=== PATIENT | female | born 1965 ===

== ENCOUNTER 2017-04-12 12:32 | Emergency (ER) | payer OTHER ==
[2017-04-12 12:32] VITALS: BMI 28.3
[2017-04-12 12:49] VITALS: BP 148/71; PULSE 97; RESP 18; TEMP 99.1; O2SAT 100
[2017-04-12] MEDS: Sodium Chloride 0.9% 1,000 ML IV STA (13:20)
--- NOTE | 2017-04-12 14:00 | ED PDOC ---
HPI: Abdomen Time Seen by Provider: 04/12/17 13:14 Chief Complaint (Nursing): Abdominal Pain Chief Complaint (Provider): Abdominal pain History Per: Patient History/Exam Limitations: no limitations Onset/Duration Of Symptoms: Days (x1) Current Symptoms Are (Timing): Still Present Pain Scale Rating Of: 8 Location Of Pain/Discomfort: LLQ Associated Symptoms: Fever, Chills, Nausea, Vomiting, Diarrhea, Other ( Abdominal pain) Additional Complaint(s): Cora Hoffman is a 51 year old female, with a past medical history of anemia and hypertension, who presents to the emergency department complaining of abdominal pain associated with nausea, vomit, diarrhea, subjective fever and chills onset since yesterday. She reports x10 episodes of diarrhea and x2 episodes of vomiting. Patient denies any recent sick contacts. No further medical complaints. PMD: Jeff Mendoza Past Medical History Reviewed: Historical Data, Nursing Documentation, Vital Signs Vital Signs: Last Vital Signs Temp 99.1 F 04/12/17 12:46 Pulse 97 H 04/12/17 12:46 Resp 18 04/12/17 12:46 BP 148/71 04/12/17 12:46 Pulse Ox 100 04/12/17 18:29 - Medical History PMH: Anemia, HTN Denies: Chronic Kidney Disease - Family History Family History: States: Unknown Family Hx - Social History Current smoker - smoking cessation education provided: No Alcohol: None Drugs: Denies - Home Medications Home Medications: Ambulatory Orders Medication Instructions Recorded amLODIPine [Norvasc] 2.5 mg PO DAILY 07/28/15 Ciprofloxacin [Cipro] 500 mg PO BID #14 tab 04/12/17 Dicyclomine [Bentyl] 20 mg PO QID PRN #10 tab 04/12/17 Multivitamin/Iron/Folic Acid 1 tab PO DAILY 04/12/17 [Centrum Complete Multivit Tab] Vitamin B Complex [Super B-50 1 cap PO DAILY 04/12/17 Complex] metroNIDAZOLE [Flagyl] 500 mg PO TID #21 tab 04/12/17 - Allergies Allergies/Adverse Reactions: Allergies Allergy/AdvReac Type Severity Reaction Status Date / Time No Known Allergies Allergy Unverified 04/26/13 08:25 Review of Systems ROS Statement: Except As Marked, All Systems Reviewed And Found Negative Constitutional: Positive for: Fever (subjective), Chills Gastrointestinal: Positive for: Nausea, Vomiting (x2), Abdominal Pain, Diarrhea (x10) Physical Exam - Reviewed Nursing Documentation Reviewed: Yes Vital Signs Reviewed: Yes - Physical Exam Appears: Positive for: Well, Non-toxic, No Acute Distress Head Exam: Positive for: ATRAUMATIC, NORMAL INSPECTION, NORMOCEPHALIC Skin: Positive for: Normal Color, Warm, Dry Eye Exam: Positive for: Normal appearance, EOMI, PERRL Neck: Positive for: Normal, Painless ROM, Supple Cardiovascular/Chest: Positive for: Regular Rate, Rhythm. Negative for: Murmur Respiratory: Positive for: Normal Breath Sounds. Negative for: Respiratory Distress Gastrointestinal/Abdominal: Positive for: Tenderness (generalized to LLQ) Back: Positive for: Normal Inspection. Negative for: L CVA Tenderness, R CVA Tenderness Extremity: Positive for: Normal ROM. Negative for: Deformity, Swelling Neurologic/Psych: Positive for: Alert, Oriented - Laboratory Results Result Diagrams: 04/12/17 14:00 04/12/17 14:00 - ECG O2 Sat by Pulse Oximetry: 100 (RA) Pulse Ox Interpretation: Normal - Physician Consult Information Physician Contacted: Jeff Mendoza Outcome Of Conversation: Agrees with plan to discharge home, follow-up in office. Medical Decision Making Medical Decision Making: Initial Impression: Colitis, gastroenteritis Initial Plan: --Abd & Pelvis IV Contrast only [CT] --EKG --Comp Metabolic Panel --Lipase --Urine dipstick --Urine --CBC w/ differential --Bentyl 20 mg PO --NS IV 1,000 ml @ 1,000 mls/hr --Zofran Inj 4 mg --reevaluation Accession No. : [id number] Patient Name / ID : JUDIT MCCOY / [id number] Exam Date : 04/12/2017 15:28:31 ( Approved ) Study Comment : Sex / Age : F / 51Y Creator : Kami Pablo MD Dictator : Kami Pablo MD Dough Scaler And Mixer : Fondant Puff Maker : Kami Pablo MD Approver2 : Report Date : 04/12/2017 16:21:03 My Comment : PROCEDURE: CT Abdomen and Pelvis with contrast HISTORY: Gen abd pain, >LLQ, vomiting, diarrhea COMPARISON: Comparison is made to the previous study dated 11/16/2014 TECHNIQUE: Contrast dose: 90 mL of Omnipaque 300. Axial and reformatted coronal and sagittal CT images of the abdomen and pelvis were obtained after IV contrast administration. Radiation dose: Total exam DLP = 830.27 mGy-cm. This CT exam was performed using one or more of the following dose reduction techniques: Automated exposure control, adjustment of the mA and/or kV according to patient size, and/or use of iterative reconstruction technique. FINDINGS: LOWER THORAX: Unremarkable. LIVER: Unremarkable. No gross lesion or ductal dilatation. GALLBLADDER AND BILE DUCTS: Status post cholecystectomy. The common bile duct is mildly dilated likely due to prior cholecystectomy. PANCREAS: Unremarkable. No gross lesion or ductal dilatation. SPLEEN: The spleen is prominent in size. ADRENALS: Unremarkable. No mass. KIDNEYS AND URETERS: Unremarkable. No hydronephrosis. No solid mass. VASCULATURE: Unremarkable. No aortic aneurysm. BOWEL: There are mildly 2 moderately dilated small bowel loops demonstrate mild enhancing thick wall noted at the mid and lower left abdomen. The large bowel is partially collapsed. Findings could represent enteritis. The possibility of low-grade bowel obstruction is not totally excluded. No evidence of pneumatosis. APPENDIX: No evidence of appendicitis. PERITONEUM: Unremarkable. No free fluid. No free air. LYMPH NODES: Unremarkable. No enlarged lymph nodes. BLADDER: The urinary bladder is not distended therefore cannot be evaluated. REPRODUCTIVE: The uterus is heterogeneous mildly enlarged likely contains multiple fibroids. BONES: No acute fracture. OTHER FINDINGS: None. IMPRESSION: Mildly to moderately dilated small bowel loops noted in the left abdomen demonstrate mild wall thickening. The differential diagnosis includes enteritis or less likely low grade bowel obstruction. The large bowel is partially collapsed. No evidence of free air or free fluid in the abdomen and pelvis. Status post cholecystectomy since the previous study. Otherwise no significant interval change. Scribe Attestation: Documented by Maurice Rene, acting as a scribe for Makenzie Gregory MD Provider Scribe Attestation: All medical record entries made by the Scribe were at my direction and personally dictated by me. I have reviewed the chart and agree that the record accurately reflects my personal performance of the history, physical exam, medical decision making, and the department course for this patient. I have also personally directed, reviewed, and agree with the discharge instructions and disposition. Disposition - Clinical Impression Clinical Impression: Enteritis - Patient ED Disposition Is Patient to be Admitted: No - Disposition Referrals: Jeff Mendoza MD [Family Provider] - Disposition: Routine/Home Disposition Time: 18:28 Condition: STABLE Prescriptions: Ciprofloxacin [Cipro] 500 mg PO BID #14 tab Dicyclomine [Bentyl] 20 mg PO QID PRN #10 tab PRN Reason: Pain, Moderate (4-7) metroNIDAZOLE [Flagyl] 500 mg PO TID #21 tab Instructions: Enteritis (ED) Forms: [employer] (Romanian) Print Language: TOGOLESE
[2017-04-12 14:18] LABS: BASO % 0.2 % (0.0-2.0); EOS % 0.1 % (0.0-4.0); HEMATOCRIT 47.1 % (34.0-47.0); LYMPH # 0.4 K/uL (1.0-4.3); LYMPH % 3.3 % (20.0-40.0); MEAN CELL VOLUME 87.6 fl (81.0-99.0); MEAN CORPUSCULAR HEMOGLOBIN 28.2 pg (27.0-31.0); MEAN CORPUSCULAR HGB CONC 32.2 g/dL (33.0-37.0); MEAN PLATELET VOLUME 9.7 fl (7.2-11.7); MONO # 0.5 K/uL (0.0-0.8); MONO % 4.2 % (0.0-10.0); NEUT # 10.9 K/uL (1.8-7.0); NEUT % 92.2 % (50.0-75.0); NRBC % 0.1 % (0.0-0.0); PLATELET COUNT 220 K/uL (130-400); RED CELL DISTRIBUTION WIDTH 14.5 % (11.5-14.5); WHITE BLOOD COUNT 11.8 K/uL (4.8-10.8)
[2017-04-12 14:19] LABS: RBC URINE 5 /hpf (0-3); URINE BACTERIA RARE (<OCC); URINE BILIRUBIN NEGATIVE (NEGATIVE); URINE BLOOD MODERATE (NEGATIVE); URINE COLOR AMBER (YELLOW); URINE GLUCOSE (UA) NEG (Normal); URINE KETONE NEGATIVE (NEGATIVE); URINE LEUKOCYTE ESTERASE MOD Leu/uL (Negative); URINE PROTEIN 30 mg/dL (NEGATIVE); URINE UROBILINOGEN 0.2-1.0 mg/dL (0.2-1.0); WBC URINE 10 /hpf (0-5)
[2017-04-12 14:31] LABS: ALB/GLOB RATIO 1.4 (1.0-2.1); ALKALINE PHOSPHATASE 87 U/L (38-126); ALT/SGPT 39 U/L (9-52); AST/SGOT 24 U/L (14-36); BILIRUBIN,TOTAL 0.7 mg/dl (0.2-1.3); BLOOD UREA NITROGEN 20 mg/dl (7-17); CALCIUM 8.6 mg/dL (8.4-10.2); CARBON DIOXIDE 24 mmol/L (22-30); CHLORIDE 106 mmol/L (98-107); GFR AFRICAN-AMERICAN > 60; GLUCOSE,RANDOM 101 mg/dL (65-105); LIPASE 60 U/L (23-300); POTASSIUM 3.9 MMOL/L (3.6-5.0); SODIUM 139 mmol/l (132-148); TOTAL PROTEIN 7.7 G/DL (6.3-8.2)
[2017-04-12 14:52] LABS: NEUTROPHIL 95 % (42-75); TOTAL CELLS COUNTED 100
[2017-04-12] MEDS ORDERED: Sodium Chloride 0.9% 50 ML IV ONE (15:34)
[2017-04-12] MEDS ORDERED: Iohexol 300 100 ML IJ ONE (15:34)
--- NOTE | 2017-04-12 16:22 | CT ---
PROCEDURE: CT Abdomen and Pelvis with contrast HISTORY: Gen abd pain, >LLQ, vomiting, diarrhea COMPARISON: Comparison is made to the previous study dated 11/16/2014 TECHNIQUE: Contrast dose: 90 mL of Omnipaque 300. Axial and reformatted coronal and sagittal CT images of the abdomen and pelvis were obtained after IV contrast administration. Radiation dose: Total exam DLP = 830.27 mGy-cm. This CT exam was performed using one or more of the following dose reduction techniques: Automated exposure control, adjustment of the mA and/or kV according to patient size, and/or use of iterative reconstruction technique. FINDINGS: LOWER THORAX: Unremarkable. LIVER: Unremarkable. No gross lesion or ductal dilatation. GALLBLADDER AND BILE DUCTS: Status post cholecystectomy. The common bile duct is mildly dilated likely due to prior cholecystectomy. PANCREAS: Unremarkable. No gross lesion or ductal dilatation. SPLEEN: The spleen is prominent in size. ADRENALS: Unremarkable. No mass. KIDNEYS AND URETERS: Unremarkable. No hydronephrosis. No solid mass. VASCULATURE: Unremarkable. No aortic aneurysm. BOWEL: There are mildly 2 moderately dilated small bowel loops demonstrate mild enhancing thick wall noted at the mid and lower left abdomen. The large bowel is partially collapsed. Findings could represent enteritis. The possibility of low-grade bowel obstruction is not totally excluded. No evidence of pneumatosis. APPENDIX: No evidence of appendicitis. PERITONEUM: Unremarkable. No free fluid. No free air. LYMPH NODES: Unremarkable. No enlarged lymph nodes. BLADDER: The urinary bladder is not distended therefore cannot be evaluated. REPRODUCTIVE: The uterus is heterogeneous mildly enlarged likely contains multiple fibroids. BONES: No acute fracture. OTHER FINDINGS: None. IMPRESSION: Mildly to moderately dilated small bowel loops noted in the left abdomen demonstrate mild wall thickening. The differential diagnosis includes enteritis or less likely low grade bowel obstruction. The large bowel is partially collapsed. No evidence of free air or free fluid in the abdomen and pelvis. Status post cholecystectomy since the previous study. Otherwise no significant interval change.
[2017-04-12] MEDS ORDERED: metroNIDAZOLE 500mg/100ml NS 100 ML IVPB ONE (17:13)
[2017-04-12] MEDS ORDERED: Ciprofloxacin 400mg/200ml D5W 400 MG/200 ML BAG IVPB ONE (17:13)
[2017-04-12] MEDS: metroNIDAZOLE 500mg/100ml NS 100 ML IV STA (17:14)
[2017-04-12] MEDS: Ciprofloxacin 400mg/200ml D5W 400 MG/200 ML BAG IV STA (18:20)
--- NOTE | 2017-04-13 07:47 | CARD ---
APPROVED REPORT EKG Measurement Heart [id number] <Conclusion> Normal sinus rhythm Normal ECG
== END 2017-04-12 19:42 | disposition home or self-care (01) ==
LOC: H.ER 12:32
DX: K52.9 Noninfective gastroenteritis and colitis, unspecified (principal); I10 Essential (primary) hypertension; Z90.49 Acquired absence of other specified parts of digestive tract; R50.9 Fever, unspecified; D64.9 Anemia, unspecified
CPT/HCPCS: 74177; 80053; 81003; 81025; 83690; 85025; 93005; 96374; 96375; 99284; J0744; J2405; J7040; Q9967

== ENCOUNTER 2017-06-29 18:08 | Emergency (ER) | payer OTHER ==
[2017-06-29 18:08] VITALS: BMI 28.3
[2017-06-29 18:29] VITALS: O2SAT 100
[2017-06-29 19:52] LABS: BASO # 0.1 K/uL (0.0-0.2); BASO % 0.8 % (0.0-2.0); EOS % 0.4 % (0.0-4.0); HEMOGLOBIN 14.2 g/dL (12.0-16.0); LYMPH # 1.4 K/uL (1.0-4.3); LYMPH % 18.9 % (20.0-40.0); MEAN CELL VOLUME 86.7 fl (81.0-99.0); MEAN CORPUSCULAR HEMOGLOBIN 28.5 pg (27.0-31.0); MEAN CORPUSCULAR HGB CONC 32.9 g/dL (33.0-37.0); MEAN PLATELET VOLUME 9.4 fl (7.2-11.7); MONO # 0.6 K/uL (0.0-0.8); MONO % 8.5 % (0.0-10.0); NEUT # 5.4 K/uL (1.8-7.0); NEUT % 71.4 % (50.0-75.0); NRBC % 0.2 % (0.0-0.0); RBC 4.99 Mil/uL (3.80-5.20); RED CELL DISTRIBUTION WIDTH 14.7 % (11.5-14.5); WHITE BLOOD COUNT 7.5 K/uL (4.8-10.8)
[2017-06-29 20:04] LABS: BLOOD UREA NITROGEN 10 mg/dl (7-17); CALCIUM 9.2 mg/dL (8.4-10.2); GFR AFRICAN-AMERICAN > 60; GFR NON-AFRICAN AMERICAN > 60
[2017-06-29 20:21] LABS: SPERM URINE FEW /hpf; SQUAMOUS EPITHIAL 7 /hpf (0-5); URINE BACTERIA OCC (<OCC); URINE BILIRUBIN NEGATIVE (NEGATIVE); URINE BLOOD NEGATIVE (NEGATIVE); URINE CLARITY CLOUDY (Clear); URINE COLOR YELLOW (YELLOW); URINE GLUCOSE (UA) NEG (Normal); URINE LEUKOCYTE ESTERASE TRACE Leu/uL (Negative); URINE NITRATE NEGATIVE (NEGATIVE); URINE PROTEIN NEGATIVE (NEGATIVE); URINE UROBILINOGEN 0.2-1.0 mg/dL (0.2-1.0)
--- NOTE | 2017-06-29 20:36 | ED PDOC ---
HPI: Headache Time Seen by Provider: 06/29/17 19:15 Chief Complaint (Nursing): Chest Pain Chief Complaint (Provider): Headache History Per: Patient History/Exam Limitations: no limitations Onset/Duration Of Symptoms: Days (x2), Worse Since Current Symptoms Are (Timing): Still Present Associated Symptoms: Nausea, Vomiting, Other (diarrhea). denies: Blurred Vision Additional Complaint(s): Cora Stanley, a 51 year old patient with a history of hypertension and headache presents to the Emergency Department complaining of headache onset two days ago. She has had one of episode nausea, vomiting, and diarrhea (non-bloody and non-bilious). Reports she took liquid gel Advil. She says it is not maximal but it has gotten worse. Patient also has non-radiating chest pain. Denies shortness of breath, vision change, weakness, and numbness. PMD:Jeff Mendoza Past Medical History Reviewed: Historical Data, Nursing Documentation, Vital Signs Vital Signs: Last Vital Signs Temp 98.4 F 06/29/17 18:27 Pulse 82 06/29/17 19:24 Resp 18 06/29/17 19:24 BP 173/93 H 06/29/17 19:24 Pulse Ox 100 06/29/17 19:24 - Medical History PMH: Anemia, HTN Denies: Chronic Kidney Disease - Family History Family History: States: Unknown Family Hx - Social History Current smoker - smoking cessation education provided: No - Home Medications Home Medications: Ambulatory Orders Medication Instructions Recorded amLODIPine [Norvasc] 2.5 mg PO DAILY 07/28/15 Ciprofloxacin [Cipro] 500 mg PO BID #14 tab 04/12/17 Dicyclomine [Bentyl] 20 mg PO QID PRN #10 tab 04/12/17 Multivitamin/Iron/Folic Acid 1 tab PO DAILY 04/12/17 [Centrum Complete Multivit Tab] Vitamin B Complex [Super B-50 1 cap PO DAILY 04/12/17 Complex] metroNIDAZOLE [Flagyl] 500 mg PO TID #21 tab 04/12/17 Ketorolac Tromethamine [Toradol] 10 mg PO BID #30 tab 06/29/17 - Allergies Allergies/Adverse Reactions: Allergies Allergy/AdvReac Type Severity Reaction Status Date / Time No Known Allergies Allergy Unverified 06/29/17 18:29 Review of Systems ROS Statement: Except As Marked, All Systems Reviewed And Found Negative Eyes: Negative for: Vision Change Cardiovascular: Positive for: Chest Pain (non-radiating ) Respiratory: Negative for: Shortness of Breath Gastrointestinal: Positive for: Nausea, Vomiting (one episode), Diarrhea (non- bloody and non-bilious ) Neurological: Negative for: Weakness, Numbness Physical Exam - Reviewed Nursing Documentation Reviewed: Yes Vital Signs Reviewed: Yes - Physical Exam Appears: Positive for: Well, Non-toxic, No Acute Distress Head Exam: Positive for: ATRAUMATIC, NORMAL INSPECTION, NORMOCEPHALIC Skin: Positive for: Normal Color, Warm, Dry Eye Exam: Positive for: Normal appearance, EOMI, PERRL ENT: Positive for: Normal ENT Inspection Neck: Positive for: Normal, Painless ROM, Supple Cardiovascular/Chest: Positive for: Regular Rate, Rhythm. Negative for: Murmur Respiratory: Positive for: Normal Breath Sounds. Negative for: Wheezing, Respiratory Distress Gastrointestinal/Abdominal: Positive for: Normal Exam, Soft. Negative for: Tenderness Back: Positive for: Normal Inspection. Negative for: L CVA Tenderness, R CVA Tenderness Extremity: Positive for: Normal ROM. Negative for: Pedal Edema, Deformity Neurologic/Psych: Positive for: Alert, Oriented (x3), Gait. Negative for: Motor /Sensory Deficits, Mood/Affect, Aphasia, Facial Droop - Laboratory Results Result Diagrams: 06/29/17 19:49 06/29/17 19:49 - ECG O2 Sat by Pulse Oximetry: 100 (RA) Pulse Ox Interpretation: Normal Medical Decision Making Medical Decision Making: Time: 19:32 Initial Impression: Migraine Headache and Gastroenteritis Initial Plan: --EKG --BMP --Troponin I --CBC --Chest X-ray --Metoclopramide 10mg --Toradol 30mg --Urinalysis --Reevaluation 930PM Patient reports complete resolution of symptoms. Patient understands the importance of followup with PMD. Return precautions discussed. Documented by Sachi Davila acting as a scribe for Matthew Epperson MD. All medical record entries made by the Scribe were at my direction and personally dictated by me. I have reviewed the chart and agree that the record accurately reflects my personal performance of the history, physical exam, medical decision making, and the department course for this patient. I have also personally directed, reviewed, and agree with the discharge instructions and disposition. Disposition - Clinical Impression Clinical Impression: Headache - Disposition Referrals: Jeff Mendoza MD [Family Provider] - Disposition Time: 21:30 Condition: IMPROVED Prescriptions: Ketorolac Tromethamine [Toradol] 10 mg PO BID #30 tab Instructions: Migraine Headache (ED) Forms: [employer] (Kinyarwanda) Print Language: CZECH
[2017-06-29 22:14] VITALS: BP 144/84; PULSE 81; RESP 17; TEMP 98.1
--- NOTE | 2017-06-30 11:20 | RAD ---
HISTORY: Chest pain. COMPARISON: 12/25/2012. FINDINGS: LUNGS: No active pulmonary disease. PLEURA: No significant pleural effusion identified, no pneumothorax apparent. CARDIOVASCULAR: No radiographic findings to suggest acute or significant cardiovascular disease. OSSEOUS STRUCTURES: No significant abnormalities. VISUALIZED UPPER ABDOMEN: Normal. OTHER FINDINGS: None. IMPRESSION: No active disease. No significant interval change compared to the prior examination(s). Concordant results with the preliminary interpretation rendered by the emergency department physician procedure.
--- NOTE | 2017-06-30 11:24 | CARD ---
APPROVED REPORT EKG Measurement Heart [id number] <Conclusion> Normal sinus rhythm Normal ECG
== END 2017-06-29 22:08 | disposition home or self-care (01) ==
LOC: H.ER 18:08
DX: G43.909 Migraine, unspecified, not intractable, without status migrainosus (principal); R07.89 Other chest pain; I10 Essential (primary) hypertension; K52.9 Noninfective gastroenteritis and colitis, unspecified
CPT/HCPCS: 71045; 80048; 81003; 81025; 84484; 85025; 93005; 96374; 96375; 99285; J1885; J2765

== ENCOUNTER 2017-07-09 21:58 | Emergency (ER) | payer OTHER ==
[2017-07-09 21:58] VITALS: BMI 28.3
[2017-07-09 22:16] VITALS: BP 150/64; RESP 18; TEMP 98.4; O2SAT 98
--- NOTE | 2017-07-09 23:08 | ED PDOC ---
HPI: General Adult Time Seen by Provider: 07/09/17 22:17 Chief Complaint (Nursing): Chest Pain Chief Complaint (Provider): Palipitations for 1 week History Per: Patient History/Exam Limitations: no limitations Onset/Duration Of Symptoms: Days (7), Intermittent Episodes Current Symptoms Are (Timing): Still Present Severity: Mild Recently: Seen In ED Additional History Per: Patient Additional Complaint(s): This is a 51 y/o female with history of HTN, who presents tonight complaining of intermittent episodes of palpitations for the last week. She reports that she was seen in this ED one week ago at the onset of the palpitations, work up was negative, and she was discharged home. Patient did follow up with her PMD Dr. Mendoza, who increased her Norvasc as her blood pressure was elevated as well. However, tonight she again experienced palpitations, as well as nausea and vomiting x2, and shortness of breath. No chest pain, lightheadedness, or other complaint. Patient reports that she does have some stress at home that has caused her to feel anxious, she has had trouble sleeping, and has had a 10 pound weight loss. Past Medical History Vital Signs: Last Vital Signs Temp 98.4 F 07/09/17 22:10 Pulse 79 07/09/17 22:50 Resp 18 07/09/17 22:10 BP 150/64 07/09/17 22:10 Pulse Ox 98 07/10/17 01:05 - Medical History PMH: Anemia, HTN Denies: Chronic Kidney Disease - Surgical History Surgical History: - Family History Family History: States: Unknown Family Hx - Home Medications Home Medications: Ambulatory Orders Medication Instructions Recorded amLODIPine [Norvasc] 2.5 mg PO DAILY 07/28/15 Ciprofloxacin [Cipro] 500 mg PO BID #14 tab 04/12/17 Dicyclomine [Bentyl] 20 mg PO QID PRN #10 tab 04/12/17 Multivitamin/Iron/Folic Acid 1 tab PO DAILY 04/12/17 [Centrum Complete Multivit Tab] Vitamin B Complex [Super B-50 1 cap PO DAILY 04/12/17 Complex] metroNIDAZOLE [Flagyl] 500 mg PO TID #21 tab 04/12/17 Ketorolac Tromethamine [Toradol] 10 mg PO BID #30 tab 06/29/17 - Allergies Allergies/Adverse Reactions: Allergies Allergy/AdvReac Type Severity Reaction Status Date / Time No Known Allergies Allergy Verified 07/09/17 22:11 Review of Systems ROS Statement: Except As Marked, All Systems Reviewed And Found Negative Cardiovascular: Positive for: Palpitations Respiratory: Positive for: Shortness of Breath Gastrointestinal: Positive for: Nausea, Vomiting Psych: Positive for: Anxiety Physical Exam - Reviewed Nursing Documentation Reviewed: Yes Vital Signs Reviewed: Yes - Physical Exam Appears: Positive for: Well, Non-toxic, No Acute Distress Head Exam: Positive for: ATRAUMATIC, NORMAL INSPECTION, NORMOCEPHALIC Skin: Positive for: Normal Color, Warm, DRY Eye Exam: Positive for: EOMI, Normal appearance, PERRL ENT: Positive for: Normal ENT Inspection Neck: Positive for: Normal, Painless ROM Cardiovascular/Chest: Positive for: Regular Rate, Rhythm Respiratory: Positive for: CNT, Normal Breath Sounds Gastrointestinal/Abdominal: Positive for: Normal Exam, Bowel Sounds, Soft Back: Positive for: Normal Inspection Extremity: Positive for: Normal ROM Neurologic/Psych: Positive for: Alert, Oriented - Laboratory Results Result Diagrams: 07/09/17 23:31 07/09/17 23:31 - ECG ECG: Positive for: Interpreted By Me, Viewed By Me ECG Rhythm: Positive for: Normal QRS, Normal ST Segment, Sinus Rhythm Interpretation Of EC:06: Normal Sinus Rhythm, rate 79. No ST changes. O2 Sat by Pulse Oximetry: 98 (RA) Pulse Ox Interpretation: Normal Medical Decision Making Medical Decision Making: Impression: Palpitations Plan: - Labs - EKG - Crisis consult Labs reviewed and revealed no clinically significant findings. Re-evaluation. Patient feels better. Discussed results and plan with patient who expresses understanding. Counseling was provided regarding the diagnosis and prognosis. All questions Answered and there is agreement with the plan to discharge home with instructions. Patient stable for discharge. Return if symptoms persist or worsen. Scribe Attestation Documented by Aditi Birmingham acting as a scribe for Fan Wyatt MD. Provider Attestation All medical record entries made by the Scribe were at my direction and personally dictated by me. I have reviewed the chart and agree that the record accurately reflects my personal performance of the history, physical exam, medical decision making, and the department course for this patient. I have also personally directed, reviewed, and agree with the discharge instructions and disposition. Disposition - Clinical Impression Clinical Impression: Palpitations, Anxiety, Adjustment disorder - Patient ED Disposition Is Patient to be Admitted: No Doctor Will See Patient In The: Office Counseled Patient/Family Regarding: Diagnosis, Need For Followup - Disposition Disposition: Against Medical Advice (01:03) Disposition Time: 01:03 Condition: STABLE Instructions: Adjustment Disorder, Anxiety, Adult (DC) Forms: [employer] (Faroese) Print Language: SLOVAK
[2017-07-09 23:10] VITALS: PULSE 79
[2017-07-09 23:37] LABS: BASO # 0.1 K/uL (0.0-0.2); EOS % 0.6 % (0.0-4.0); HEMOGLOBIN 13.8 g/dL (12.0-16.0); LYMPH # 1.6 K/uL (1.0-4.3); LYMPH % 26.4 % (20.0-40.0); MEAN CELL VOLUME 87.2 fl (81.0-99.0); MEAN CORPUSCULAR HEMOGLOBIN 28.6 pg (27.0-31.0); MEAN CORPUSCULAR HGB CONC 32.8 g/dL (33.0-37.0); MEAN PLATELET VOLUME 10.1 fl (7.2-11.7); MONO # 0.6 K/uL (0.0-0.8); MONO % 10.1 % (0.0-10.0); NEUT # 3.7 K/uL (1.8-7.0); NEUT % 61.9 % (50.0-75.0); NRBC % 0.1 % (0.0-0.0); RBC 4.81 Mil/uL (3.80-5.20); RED CELL DISTRIBUTION WIDTH 14.6 % (11.5-14.5); WHITE BLOOD COUNT 5.9 K/uL (4.8-10.8)
[2017-07-09 23:51] LABS: BLOOD UREA NITROGEN 12 mg/dl (7-17); CALCIUM 9.2 mg/dL (8.4-10.2); GFR AFRICAN-AMERICAN > 60; GFR NON-AFRICAN AMERICAN > 60
[2017-07-10 00:02] LABS: BARBITURATES, UR NEGATIVE (NEGATIVE); BENZODIAZEPINES, UR NEGATIVE (NEGATIVE); OPIATES, UR NEGATIVE (NEGATIVE); PHENCYCLIDINE, UR NEGATIVE (NEGATIVE)
--- NOTE | 2017-07-11 09:09 | CARD ---
APPROVED REPORT EKG Measurement Heart [id number] [id number] <Conclusion> Normal sinus rhythm Normal ECG
== END 2017-07-10 01:14 | disposition home or self-care (01) ==
LOC: H.ER 21:58
DX: R00.2 Palpitations (principal); F41.9 Anxiety disorder, unspecified; F43.20 Adjustment disorder, unspecified; I10 Essential (primary) hypertension

== ENCOUNTER 2017-12-20 08:17 | Emergency (ER) | payer OTHER ==
[2017-12-20 08:20] VITALS: BMI 26.5
--- NOTE | 2017-12-20 09:04 | ED PDOC ---
HPI: Female Pain Time Seen by Provider: 12/20/17 08:55 Chief Complaint (Provider): urine burning History Per: Patient History/Exam Limitations: no limitations Onset/Duration Of Symptoms: Days (today) Current Symptoms Are (Timing): Still Present Additional Complaint(s): Pt. with dysuria, hematuria, frequency of urination, urgency of urination. No abd pain, back pain, vaginal bleeding, nausea, vomit, diarrhea. Past Medical History Reviewed: Nursing Documentation, Vital Signs Vital Signs: Last Vital Signs Temp 98.8 F 12/20/17 08:20 Pulse 83 12/20/17 08:20 Resp 17 12/20/17 08:20 BP 138/76 12/20/17 08:20 Pulse Ox 99 12/20/17 08:20 - Medical History PMH: Anemia, HTN Denies: Diabetes, Hepatitis, HIV, Chronic Kidney Disease, Seizures, Sexually Transmitted Disease - Surgical History Surgical History: - Family History Family History: States: Unknown Family Hx - Living Arrangements Living Arrangements: With Family - Home Medications Home Medications: Ambulatory Orders Medication Instructions Recorded amLODIPine [Norvasc] 2.5 mg PO DAILY 07/28/15 Ciprofloxacin [Cipro] 500 mg PO BID #14 tab 04/12/17 Dicyclomine [Bentyl] 20 mg PO QID PRN #10 tab 04/12/17 Multivitamin/Iron/Folic Acid 1 tab PO DAILY 04/12/17 [Centrum Complete Multivit Tab] Vitamin B Complex [Super B-50 1 cap PO DAILY 04/12/17 Complex] metroNIDAZOLE [Flagyl] 500 mg PO TID #21 tab 04/12/17 Ketorolac Tromethamine [Toradol] 10 mg PO BID #30 tab 06/29/17 Ibuprofen [Motrin] 600 mg PO TID 7 Days tab 12/20/17 Nitrofurantoin Macrocrystals 100 mg PO BID #10 cap 12/20/17 [Macrobid] Phenazopyridine HCl [Pyridium] 100 mg PO BID PRN 5 Days tab 12/20/17 - Allergies Allergies/Adverse Reactions: Allergies Allergy/AdvReac Type Severity Reaction Status Date / Time No Known Allergies Allergy Verified 07/09/17 22:11 Review of Systems Constitutional: Negative for: Weakness Cardiovascular: Negative for: Chest Pain Respiratory: Negative for: Shortness of Breath Gastrointestinal: Negative for: Nausea, Vomiting, Abdominal Pain, Diarrhea Genitourinary Female: Positive for: Dysuria, Frequency, Hematuria. Negative for : Vaginal Discharge, Vaginal Bleeding, Pelvic Pain Musculoskeletal: Negative for: Neck Pain Skin: Negative for: Rash Neurological: Negative for: Weakness Physical Exam - Reviewed Nursing Documentation Reviewed: Yes Vital Signs Reviewed: Yes - Physical Exam Appears: Positive for: Non-toxic, No Acute Distress Neck: Positive for: Normal, Painless ROM Cardiovascular/Chest: Positive for: Regular Rate, Rhythm Respiratory: Positive for: CNT, Normal Breath Sounds Gastrointestinal/Abdominal: Positive for: Soft, Tenderness (suprapubic mild) Back: Positive for: Normal Inspection. Negative for: L CVA Tenderness, R CVA Tenderness Extremity: Positive for: Normal ROM. Negative for: Tenderness, Pedal Edema Neurologic/Psych: Positive for: Alert - Laboratory Results Urine POC: Negative Urine dip results: Positive for: Blood - ECG O2 Sat by Pulse Oximetry: 99 Pulse Ox Interpretation: Normal - Progress ED Course And Treament: 1058: Has uti. Will dc with macrobid. Stable. AAOx3. Tolerated PO. FU with pcp. Disposition - Clinical Impression Clinical Impression: UTI (urinary tract infection) - Patient ED Disposition Is Patient to be Admitted: No Counseled Patient/Family Regarding: Studies Performed, Diagnosis, Need For Followup, Rx Given - Disposition Referrals: [facility] [Outside] - 12/21/17 Disposition: Routine/Home Disposition Time: 10:59 Condition: STABLE Additional Instructions: Return if not better in 3 days. Prescriptions: Ibuprofen [Motrin] 600 mg PO TID 7 Days tab Nitrofurantoin Macrocrystals [Macrobid] 100 mg PO BID #10 cap Phenazopyridine HCl [Pyridium] 100 mg PO BID PRN 5 Days tab PRN Reason: Bladder Spasm Instructions: Urinary Tract Infection, Adult (DC) Forms: [employer] (Persian)
[2017-12-20 12:26] VITALS: BP 126/78; PULSE 78; RESP 19; TEMP 97; O2SAT 98
== END 2017-12-20 12:26 | disposition home or self-care (01) ==
LOC: H.ER 08:17
DX: N39.0 Urinary tract infection, site not specified (principal); I10 Essential (primary) hypertension

== ENCOUNTER 2018-01-30 19:05 | Emergency (ER) | payer OTHER ==
[2018-01-30 19:05] VITALS: BMI 26.5
[2018-01-30] MEDS ORDERED: Sodium Chloride 0.9% 1,000 ML IV STA (20:09)
[2018-01-30] MEDS ORDERED: Iohexol 240 (50 ml) ONE (20:19)
[2018-01-30] MEDS ORDERED: Iohexol 240 (50 ml) PO ONE (20:20)
[2018-01-30 20:53] LABS: BASO % 0.7 % (0.0-2.0); EOS # 0.1 K/uL (0.0-0.7); HEMOGLOBIN 14.9 g/dL (12.0-16.0); LYMPH # 1.8 K/uL (1.0-4.3); LYMPH % 27.2 % (20.0-40.0); MEAN CELL VOLUME 89.5 fl (81.0-99.0); MEAN CORPUSCULAR HEMOGLOBIN 30.3 pg (27.0-31.0); MEAN CORPUSCULAR HGB CONC 33.8 g/dL (33.0-37.0); MEAN PLATELET VOLUME 9.7 fl (7.2-11.7); MONO # 0.6 K/uL (0.0-0.8); MONO % 8.8 % (0.0-10.0); NEUT % 62.3 % (50.0-75.0); NRBC % 0.1 % (0.0-0.0); RBC 4.92 Mil/uL (3.80-5.20); RED CELL DISTRIBUTION WIDTH 14.4 % (11.5-14.5); WHITE BLOOD COUNT 6.5 K/uL (4.8-10.8)
[2018-01-30 21:05] LABS: SQUAMOUS EPITHIAL 10 /hpf (0-5); URINE BACTERIA OCC (<OCC); URINE BILIRUBIN NEGATIVE (NEGATIVE); URINE CLARITY TURBID (Clear); URINE COLOR YELLOW (YELLOW); URINE GLUCOSE (UA) 50 mg/dL (Normal); URINE LEUKOCYTE ESTERASE TRACE Leu/uL (Negative); URINE PROTEIN >=500 mg/dL (NEGATIVE); URINE UROBILINOGEN 0.2-1.0 mg/dL (0.2-1.0)
[2018-01-30 21:11] LABS: URINE BLOOD LARGE (NEGATIVE)
[2018-01-30 21:12] LABS: ALB/GLOB RATIO 1.3 (1.0-2.1); ALBUMIN 4.3 g/dL (3.5-5.0); ALT/SGPT 32 U/L (9-52); AST/SGOT 45 U/L (14-36); BLOOD UREA NITROGEN 12 mg/dl (7-17); CALCIUM 9.5 mg/dL (8.4-10.2); GFR NON-AFRICAN AMERICAN > 60; LIPASE 65 U/L (23-300)
--- NOTE | 2018-01-30 21:45 | ED PDOC ---
HPI: Abdomen Time Seen by Provider: 01/30/18 19:44 Chief Complaint (Nursing): Abdominal Pain Chief Complaint (Provider): abdominal pain History Per: Patient, Rn [facility] Therapy ([id number]) History/Exam Limitations: no limitations Onset/Duration Of Symptoms: Days (5+), Gradual Current Symptoms Are (Timing): Still Present Severity: Moderate Location Of Pain/Discomfort: RLQ Quality Of Discomfort: Sharp, Burning Associated Symptoms: denies: Nausea, Vomiting, Diarrhea, Loss Of Appetite Exacerbating Factors: None Alleviating Factors: None Additional Complaint(s): 52yo female c/o abd pain mostly right sided ongoing for more than 5 days, denies N/V/D, denies fever, blood per rectum, weight loss or urinary symptoms. Denies prior history similar pain. Has had UTIs in past but not recently. Abnormal Vaginal Bleeding: No Past Medical History Reviewed: Historical Data, Nursing Documentation, Vital Signs Vital Signs: Last Vital Signs Temp 98.5 F 01/30/18 19:11 Pulse 71 01/30/18 19:11 Resp 14 01/30/18 19:11 BP 150/88 01/30/18 19:11 Pulse Ox 100 01/31/18 00:13 - Medical History PMH: Anemia, HTN Denies: Diabetes, Hepatitis, HIV, Chronic Kidney Disease, Seizures, Sexually Transmitted Disease - Surgical History Surgical History: Cholecystectomy, - Family History Family History: States: Unknown Family Hx - Living Arrangements Living Arrangements: With Family - Social History Current smoker - smoking cessation education provided: No - Home Medications Home Medications: Ambulatory Orders Medication Instructions Recorded amLODIPine [Norvasc] 2.5 mg PO DAILY 07/28/15 Ciprofloxacin [Cipro] 500 mg PO BID #14 tab 04/12/17 Dicyclomine [Bentyl] 20 mg PO QID PRN #10 tab 04/12/17 Multivitamin/Iron/Folic Acid 1 tab PO DAILY 04/12/17 [Centrum Complete Multivit Tab] Vitamin B Complex [Super B-50 1 cap PO DAILY 04/12/17 Complex] metroNIDAZOLE [Flagyl] 500 mg PO TID #21 tab 04/12/17 Ketorolac Tromethamine [Toradol] 10 mg PO BID #30 tab 06/29/17 Ibuprofen [Motrin] 600 mg PO TID 7 Days tab 12/20/17 Nitrofurantoin Macrocrystals 100 mg PO BID #10 cap 12/20/17 [Macrobid] Phenazopyridine HCl [Pyridium] 100 mg PO BID PRN 5 Days tab 12/20/17 Cephalexin [cephalexin] 500 mg PO TID #21 cap 01/31/18 - Allergies Allergies/Adverse Reactions: Allergies Allergy/AdvReac Type Severity Reaction Status Date / Time No Known Allergies Allergy Verified 01/30/18 19:11 Review of Systems Constitutional: Negative for: Fever ENT: Negative for: Nose Discharge Cardiovascular: Negative for: Chest Pain Respiratory: Negative for: Shortness of Breath Gastrointestinal: Positive for: Abdominal Pain. Negative for: Diarrhea, Constipation, Melena Genitourinary Female: Positive for: Frequency. Negative for: Dysuria, Incontinence Musculoskeletal: Negative for: Neck Pain, Shoulder Pain Skin: Negative for: Rash, Lesions Neurological: Positive for: Headache. Negative for: Weakness, Numbness Psych: Negative for: Anxiety Physical Exam - Reviewed Nursing Documentation Reviewed: Yes Vital Signs Reviewed: Yes - Physical Exam Appears: Positive for: Well, Non-toxic, No Acute Distress Head Exam: Positive for: ATRAUMATIC, NORMAL INSPECTION, NORMOCEPHALIC Skin: Positive for: Normal Color, Warm, DRY Eye Exam: Positive for: EOMI, Normal appearance, PERRL ENT: Positive for: Normal ENT Inspection Neck: Positive for: Normal, Painless ROM Cardiovascular/Chest: Positive for: Regular Rate, Rhythm Respiratory: Positive for: CNT, Normal Breath Sounds Gastrointestinal/Abdominal: Positive for: Soft, Tenderness (RLQ). Negative for : Guarding, Rebound Back: Positive for: Normal Inspection Extremity: Positive for: Normal ROM Neurologic/Psych: Positive for: Alert, Oriented. Negative for: Motor/Sensory Deficits - Laboratory Results Result Diagrams: 01/30/18 20:48 01/30/18 20:48 - ECG O2 Sat by Pulse Oximetry: 100 Medical Decision Making Medical Decision Making: workup for abd pain initiated, obtain bloodwork and CT r/o appy, GB disease, other labs reviewed and unremarkable US and CT performed FINDINGS: Lower thorax: No acute findings. ABDOMEN: Liver: Normal. No mass. Gallbladder and bile ducts: There has been a cholecystectomy.There is a mild, expected degree of intrahepatic and common bile duct dilation. Pancreas: Normal. No ductal dilation. Spleen: Normal. No splenomegaly. Adrenals: Normal. No mass. Kidneys and ureters: Normal. No hydronephrosis. Stomach and bowel: Normal. No obstruction. No mucosal thickening. Appendix: A normal appendix is identified. PELVIS: Bladder: Unremarkable as visualized Reproductive: There are multiple uterine fibroids. ABDOMEN and PELVIS: Intraperitoneal space: Normal. No free air. No significant fluid collection. Bones/joints: No acute fracture. No dislocation. Soft tissues: Unremarkable. Vasculature: Normal. No abdominal aortic aneurysm. Lymph nodes: Normal. No enlarged lymph nodes. IMPRESSION: No evidence of an acute intra-abdominal or pelvic abnormality. Normal appendix. Thank you for allowing us to participate in the care of your patient. Dictated and Authenticated by: Carly Gross MD 01/31/2018 12:05 AM Eastern Time ([place] & [place]) COMPARISON: No relevant prior studies available. FINDINGS: Uterus/cervix: The uterus is enlarged and lobulated in contour with multiple fibroids areas the largest fibroid in the posterior fundus measures 5.1 x 4.2 x 6.0 cm. The endometrial stripe is not wellvisualized. The visualized portion measure 7 mm. Right ovary: The right ovary is not visualized. Left ovary: The left ovary is normal. Normal blood flow. Free fluid: No free fluid. IMPRESSION: Uterine fibroids. Thank you for allowing us to participate in the care of your patient. Dictated and Authenticated by: Carly Gross MD 01/30/2018 11:00 PM Eastern Time ( & Lex) Dose Rocephin given in ED after urine culture obtained. Serum WBC normal. Outpatient treatment indicated at time of eval given afebrile w normal WBC and responsive pain. Results explained in uzbek/ Followup PMD and GI. Return ER for any new or worsening symptoms. Disposition - Clinical Impression Clinical Impression: Abdominal pain in female, UTI (urinary tract infection), Pyelonephritis - Patient ED Disposition Is Patient to be Admitted: No Counseled Patient/Family Regarding: Studies Performed, Need For Followup, Rx Given - Disposition Referrals: Jeff Mendoza MD [Family Provider] - Disposition: Routine/Home Disposition Time: 23:40 Condition: STABLE Additional Instructions: Drink plenty of fluids. Followup urine culture 2-3 days. Return to ER for any worse or new symptoms. Take antibiotics as directed. Prescriptions: Cephalexin [cephalexin] 500 mg PO TID #21 cap Instructions: Urinary Tract Infections in Adults, Acute Abdomen (Belly Pain) Forms: [facility] (Burmese) Print Language: BELARUSIAN - POA Present On Arrival: None
[2018-01-30] MEDS ORDERED: Sodium Chloride 0.9% 50 ML IV ONE (23:21)
[2018-01-30] MEDS ORDERED: Iohexol 300 100 ML IJ ONE (23:21)
[2018-01-31] MEDS ORDERED: cefTRIAXone (Rocephin) 1 gm Inj ONE (00:25)
[2018-01-31 01:40] VITALS: BP 142/90; PULSE 76; RESP 16; TEMP 98; O2SAT 98
--- NOTE | 2018-01-31 11:19 | US ---
Date of service: 01/30/2018 HISTORY: RLQ pain x1 week. LMP 01/30/2018. Irregular cycles. COMPARISON: None available. TECHNIQUE: Transabdominal, transvaginal. Real -time technique with 2D, duplex and color Doppler. FINDINGS: UTERUS: Measures 7.2 x 7.8 x 12.4 cm. Heterogeneous and enlarged uterus. Exophytic posterior fundal fibroid 4.2 x 5.1 cm. ENDOMETRIUM: Measures 7.0 mm in diameter. Unremarkable. CERVIX: No cervical abnormality identified. RIGHT OVARY: Not visible. LEFT OVARY: Measures 1.5 x 2.5 x 3.4 cm. No solid mass. Normal flow. FREE FLUID: No significant free fluid noted. OTHER FINDINGS: None. IMPRESSION: Enlarged heterogeneous, myomatous uterus. Unremarkable left adnexa. Non visible right adnexa. Concordant results (preliminary interpretation) provided by [facility]. Procedure Completed: 21:14. Preliminary ([facility]) Report: Dictated and Authenticated: 23:00. Final Interpretation: 11:17.
--- NOTE | 2018-01-31 11:48 | CT ---
Date of service: 01/30/2018 PROCEDURE: CT Abdomen and Pelvis with contrast HISTORY: Right-sided abdominal pain 1 week duration. COMPARISON: 04/12/2017 CT abdomen and pelvis January 31, 2018. Pelvic ultrasound TECHNIQUE: Contrast dose: 90 cc Omnipaque 300 Radiation dose: Total exam DLP = 476.03 mGy-cm. This CT exam was performed using one or more of the following dose reduction techniques: Automated exposure control, adjustment of the mA and/or kV according to patient size, and/or use of iterative reconstruction technique. FINDINGS: LOWER THORAX: Unremarkable. LIVER: Unremarkable. No gross lesion or ductal dilatation. GALLBLADDER AND BILE DUCTS: Status post cholecystectomy. No abnormality is seen in the gallbladder fossa. PANCREAS: Unremarkable. No gross lesion or ductal dilatation. SPLEEN: Unremarkable. ADRENALS: Unremarkable. No mass. KIDNEYS AND URETERS: Unremarkable. No hydronephrosis. No solid mass. VASCULATURE: Unremarkable. No aortic aneurysm. BOWEL: Unremarkable. No obstruction. No gross mural thickening. APPENDIX: Normal appendix. PERITONEUM: Unremarkable. No free fluid. No free air. LYMPH NODES: Unremarkable. No enlarged lymph nodes. BLADDER: Unremarkable. REPRODUCTIVE: Enlarged heterogeneous, myomatous uterus. Findings confirmed on concurrent CT scan. BONES: No acute fracture. OTHER FINDINGS: None. IMPRESSION: No acute findings related to/accounting for the clinical presentation. Additional benign and/or incidental findings described above. Concordant results (preliminary interpretation) provided by [facility]. Procedure Completed: 23:49. Preliminary ([facility]) Report: Dictated and Authenticated: 00:05. Final Interpretation: 11:46. January 31, 2018.
== END 2018-01-31 01:40 | disposition home or self-care (01) ==
LOC: H.ER 19:05
DX: R10.2 Pelvic and perineal pain (principal); N12 Tubulo-interstitial nephritis, not specified as acute or chronic; I10 Essential (primary) hypertension
CPT/HCPCS: 74177; 76830; 76856; 80053; 81003; 81025; 83690; 85025; 87086; 96360; 99285; J0696; J1885; J7030; Q9966; Q9967

== ENCOUNTER 2018-07-04 15:51 | Emergency (ER) | payer OTHER ==
[2018-07-04 15:51] VITALS: BMI 26.5
[2018-07-04 16:08] VITALS: O2SAT 100
--- NOTE | 2018-07-04 16:16 | ED PDOC ---
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 Patient reports that she last took Advil this morning around 1100 with minimal relief, but the headache persists. Additionally, for the past week she notes a tactile fever and nausea, but does not currently feel nauseous. Otherwise, denies history of similar headaches, vomiting, vision changes, numbness or weakness in extremities, sick contact, and recent travel. LNMP: currently PMD: Jeff Mendoza Past Medical History Reviewed: Historical Data, Nursing Documentation, Vital Signs Vital Signs: Last Vital Signs Temp 98.2 F 07/04/18 16:05 Pulse 67 07/04/18 16:05 Resp 16 07/04/18 16:05 BP 144/80 07/04/18 16:05 Pulse Ox 100 07/04/18 16:05 - Medical History PMH: Anemia, HTN - Surgical History Surgical History: Cholecystectomy - Family History Family History: States: Unknown Family Hx - Social History Current smoker - smoking cessation education provided: No Alcohol: None Drugs: Denies - Home Medications Home Medications: Ambulatory Orders Medication Instructions Recorded amLODIPine [Norvasc] 2.5 mg PO DAILY 07/28/15 Ciprofloxacin [Cipro] 500 mg PO BID #14 tab 04/12/17 Dicyclomine [Bentyl] 20 mg PO QID PRN #10 tab 04/12/17 Multivitamin/Iron/Folic Acid 1 tab PO DAILY 04/12/17 [Centrum Complete Multivit Tab] RX: Vitamin B Complex [Super B-50 1 cap PO DAILY 04/12/17 Complex] metroNIDAZOLE [Flagyl] 500 mg PO TID #21 tab 04/12/17 Ketorolac Tromethamine [Toradol] 10 mg PO BID #30 tab 06/29/17 Ibuprofen [Motrin] 600 mg PO TID 7 Days tab 12/20/17 Nitrofurantoin Macrocrystals 100 mg PO BID #10 cap 12/20/17 [Macrobid] Phenazopyridine HCl [Pyridium] 100 mg PO BID PRN 5 Days tab 12/20/17 Cephalexin [cephalexin] 500 mg PO TID #21 cap 01/31/18 RX: Naproxen 500 mg PO BID PRN #20 tab 07/04/18 Acetaminophen/Butalbital/Caf 1 tab PO Q6 PRN #12 tab 07/05/18 [Fioricet] - Allergies Allergies/Adverse Reactions: Allergies Allergy/AdvReac Type Severity Reaction Status Date / Time No Known Allergies Allergy Verified 07/05/18 21:12 Review of Systems ROS Statement: Except As Marked, All Systems Reviewed And Found Negative Constitutional: Positive for: Fever (tactile) Eyes: Negative for: Vision Change Gastrointestinal: Positive for: Nausea. Negative for: Vomiting Neurological: Positive for: Headache (back and top of head described as pressure, 10). Negative for: Weakness (in extremities), Numbness (in extremities) Physical Exam - Reviewed Nursing Documentation Reviewed: Yes Vital Signs Reviewed: Yes - Physical Exam Comments: GENERAL APPEARANCE: Patient is awake, alert, oriented x 3, in no acute distress. Resting comfortably. SKIN: Warm, dry; (-) cyanosis; (-) rash. HEAD: (-) scalp swelling or tenderness, (-) temporal artery tenderness. EYES: (-) conjunctival injection ENMT: Pharynx: clear, uvula midline (-) erythema (-) exudate. (-) sinus tendern ess; mucous membranes are moist. Airway patent, (-) stridor. NECK: Supple, FROM (-) tenderness, (-) stiffness, (-) meningismus, (-) lymphadenopathy. CHEST AND RESPIRATORY: (-) rales, (-) rhonchi, (-) wheezes; breath sounds equal bilaterally. Respirations even and nonlabored. HEART AND CARDIOVASCULAR: (-) irregularity ABDOMEN AND GI: Soft; (-) tenderness. EXTREMITIES: (-) deformity. NEURO AND PSYCH: Mental status as above. 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 Gait: steady. Speech: clear. (-) facial asymmetry - Laboratory Results Urine POC: Negative - ECG O2 Sat by Pulse Oximetry: 100 (RA) Pulse Ox Interpretation: Normal Medical Decision Making Medical Decision Making: Initial Impression: headache Time: 1620 Initial Plan: --CT Head without contrast --Tylenol 650mg PO --Reevaluation 1700 CT reviewed, radiology report follows Date of service: 07/04/2018 PROCEDURE: CT HEAD WITHOUT CONTRAST. HISTORY: posterior headache x2 weeks, nausea COMPARISON: None available. TECHNIQUE: Axial computed tomography images were obtained through the head/brain without intravenous contrast. Radiation dose: Total exam DLP = 796.51 mGy-cm. This CT exam was performed using one or more of the following dose reduction techniques: Automated exposure control, adjustment of the mA and/or kV according to patient size, and/or use of iterative reconstruction technique. FINDINGS: HEMORRHAGE: No intracranial hemorrhage. BRAIN: Normal torre-white matter differentiation and density are appreciated throughout the cerebrum and cerebellum with the brainstem appearing unremarkable as well. There is no mass effect. There is no suspicious extra-axial fluid collection and the midline brain anatomy appears diffusely unremarkable. VENTRICLES: Unremarkable. No hydrocephalus. CALVARIUM: Unremarkable. PARANASAL SINUSES: Unremarkable as visualized. No significant inflammatory changes. MASTOID AIR CELLS: Unremarkable as visualized. No inflammatory changes. OTHER FINDINGS: None. IMPRESSION: Unremarkable unenhanced head CT. In light of CT findings, Toradol 30mg IM ordered. 1730 On re-evaluation, patient reports improvement of symptoms. On exam, patient remains AAOx3, in no acute distress. Vitals stable. Lab/Diagnostic results d/w the patient in great detail. Diagnosis of headache, migraine vs tension d/w the patient. Based on history, exam and diagnostic results, plan will be for outpatient follow up with PMD/neuro. Patient instructed to follow-up with pmd / referral provided / the clinic in 1- 2 days without fail. Advised to take medication as prescribed. Return to the emergency room at any time for any new or worsening symptoms. Patient states she fully agrees with and understands discharge instructions. States that she agrees with the plan and disposition. Verbalized and repeated discharge instructions and plan. I have given the patient opportunity to ask any additional questions. Scribe Attestation: Documented by Eva Davis, acting as a scribe for Marilin Pineda PA-C. Provider Scribe Attestation: All medical record entries made by the Scribe were at my direction and personally dictated by me. I have reviewed the chart and agree that the record accurately reflects my personal performance of the history, physical exam, medical decision making, and the department course for this patient. I have also personally directed, reviewed, and agree with the discharge instructions and disposition. Disposition - Clinical Impression Clinical Impression: Acute headache, Nausea - Patient ED Disposition Is Patient to be Admitted: No Counseled Patient/Family Regarding: Studies Performed, Diagnosis, Need For Followup, Rx Given - Disposition Referrals: Jason Chapman MD [Medical Doctor] - Jeff Mendoza MD [Family Provider] - Disposition: Routine/Home Disposition Time: 17:30 Condition: STABLE Additional Instructions: La atencin mdica de emergencia que recibi hoy se dirigi a wanda sntomas agudos. Si le recetaron algn medicamento, llnelo y tmelo segn las indicaciones. Los sntomas pueden tardar varios orozco en resolverse. Regrese al Departamento de Emergencias si wanda sntomas empeoran, no mejoran o si tiene otros problemas. Comunquese con thornton mdico dentro de 2 orozco para antonio nueva evaluacin y anais un seguimiento o llame a too de los mdicos / clnicas a los que cardoza sido referido y que figuran en el formulario de Informacin de visita al paciente que se incluye en thornton paquete de garcia. Lleve todos los documentos que le entregaron al momento del garcia junto con todos los medicamentos que est tomando para thornton visita de seguimiento. Nuestro tratamiento no puede reemplazar la atencin mdica continua por parte de un proveedor de atencin primaria (PCP) fuera del departamento de emergencias. Prescriptions: RX: Naproxen 500 mg PO BID PRN #20 tab PRN Reason: Headache Instructions: Tension Headache, Migraine Headache (DC), Nausea and Vomiting, Adult, Acute Headache (ED) Forms: [facility] (Mongolian) Print Language: MALAGASY - POA Present On Arrival: None
--- NOTE | 2018-07-04 17:05 | CT ---
Date of service: 07/04/2018 PROCEDURE: CT HEAD WITHOUT CONTRAST. HISTORY: posterior headache x2 weeks, nausea COMPARISON: None available. TECHNIQUE: Axial computed tomography images were obtained through the head/brain without intravenous contrast. Radiation dose: Total exam DLP = 796.51 mGy-cm. This CT exam was performed using one or more of the following dose reduction techniques: Automated exposure control, adjustment of the mA and/or kV according to patient size, and/or use of iterative reconstruction technique. FINDINGS: HEMORRHAGE: No intracranial hemorrhage. BRAIN: Normal torre-white matter differentiation and density are appreciated throughout the cerebrum and cerebellum with the brainstem appearing unremarkable as well. There is no mass effect. There is no suspicious extra-axial fluid collection and the midline brain anatomy appears diffusely unremarkable. VENTRICLES: Unremarkable. No hydrocephalus. CALVARIUM: Unremarkable. PARANASAL SINUSES: Unremarkable as visualized. No significant inflammatory changes. MASTOID AIR CELLS: Unremarkable as visualized. No inflammatory changes. OTHER FINDINGS: None. IMPRESSION: Unremarkable unenhanced head CT.
[2018-07-04 18:06] VITALS: BP 138/88; PULSE 72; RESP 18; TEMP 98
== END 2018-07-04 18:04 | disposition home or self-care (01) ==
LOC: H.ER 15:51
DX: R51 Headache (principal); R11.0 Nausea; I10 Essential (primary) hypertension
CPT/HCPCS: 70450; 96372; 99285; J1885

== ENCOUNTER 2018-07-05 20:33 | Emergency (ER) | payer OTHER ==
[2018-07-05 20:34] VITALS: BMI 26.5
[2018-07-05 21:15] VITALS: TEMP 98.3; O2SAT 99
--- NOTE | 2018-07-05 21:32 | ED PDOC ---
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 Patient was seen here yesterday for the same symptoms, given Toradol in the ED which provided relief, and discharged with a prescription for Naproxen. Her headache is unchanged from yesterday. She last took Naproxen as 4pm today. Patient followed up with her cotton ginner today who told her to call her PMD and schedule an MRI if her headache persists. Patient presents to ED requesting MRI evaluation. She was also given a referral for a neurologist, but has not made an appointment yet. Otherwise, denies history of similar headaches, fever, neck pain/stiffness, vomiting, vision changes, numbness or weakness in extremities, sick contact, and recent travel. PMD: Dr. Jeff Mendoza Past Medical History Reviewed: Historical Data, Nursing Documentation, Vital Signs Vital Signs: Last Vital Signs Temp 98.3 F 07/05/18 21:12 Pulse 72 07/05/18 21:12 Resp 16 07/05/18 21:12 BP 143/69 07/05/18 21:12 Pulse Ox 99 07/05/18 21:12 - Medical History PMH: Anemia, HTN - Surgical History Surgical History: Cholecystectomy, - Family History Family History: States: Unknown Family Hx - Home Medications Home Medications: Ambulatory Orders Medication Instructions Recorded amLODIPine [Norvasc] 2.5 mg PO DAILY 07/28/15 Ciprofloxacin [Cipro] 500 mg PO BID #14 tab 04/12/17 Dicyclomine [Bentyl] 20 mg PO QID PRN #10 tab 04/12/17 Multivitamin/Iron/Folic Acid 1 tab PO DAILY 04/12/17 [Centrum Complete Multivit Tab] RX: Vitamin B Complex [Super B-50 1 cap PO DAILY 04/12/17 Complex] metroNIDAZOLE [Flagyl] 500 mg PO TID #21 tab 04/12/17 Ketorolac Tromethamine [Toradol] 10 mg PO BID #30 tab 06/29/17 Ibuprofen [Motrin] 600 mg PO TID 7 Days tab 12/20/17 Nitrofurantoin Macrocrystals 100 mg PO BID #10 cap 12/20/17 [Macrobid] Phenazopyridine HCl [Pyridium] 100 mg PO BID PRN 5 Days tab 12/20/17 Cephalexin [cephalexin] 500 mg PO TID #21 cap 01/31/18 RX: Naproxen 500 mg PO BID PRN #20 tab 07/04/18 Acetaminophen/Butalbital/Caf 1 tab PO Q6 PRN #12 tab 07/05/18 [Fioricet] - Allergies Allergies/Adverse Reactions: Allergies Allergy/AdvReac Type Severity Reaction Status Date / Time No Known Allergies Allergy Verified 07/05/18 21:12 Review of Systems ROS Statement: Except As Marked, All Systems Reviewed And Found Negative Neurological: Positive for: Headache (pressure like) Physical Exam - Reviewed Nursing Documentation Reviewed: Yes Vital Signs Reviewed: Yes - Physical Exam Comments: GENERAL APPEARANCE: Patient is awake, alert, oriented x 3, in no acute distress. Resting comfortably. SKIN: Warm, dry; (-) cyanosis; (-) rash. HEAD: (-) scalp swelling or tenderness, (-) temporal artery tenderness. ENMT: Pharynx: clear, uvula midline (-) erythema (-) exudate. (-) sinus tenderness; mucous membranes are moist. NECK: Supple, FROM (-) tenderness, (-) stiffness, (-) meningismus, (-) lymphadenopathy. CHEST AND RESPIRATORY: (-) rales, (-) rhonchi, (-) wheezes; breath sounds equal bilaterally. Respirations nonlabored. HEART AND CARDIOVASCULAR: (-) irregularity ABDOMEN AND GI: Soft; (-) tenderness. EXTREMITIES: (-) deformity. NEURO AND PSYCH: Mental status as above. Pupils equal and reactive; EOMI and painless; (-) facial asymmetry; tongue and uvula midline. Strength symmetric. Gait: steady. Speech: clear. Cerebellar tests intact. - ECG O2 Sat by Pulse Oximetry: 99 (RA) Pulse Ox Interpretation: Normal Medical Decision Making Medical Decision Makin:34 Clinical Impression: headache Initial Plan: --Fioricet 1 tab PO --Toradol 30 mg IM --Re-evaluation CT reviewed from visit on 07/04/2018, radiology report follows PROCEDURE: CT HEAD WITHOUT CONTRAST. HISTORY: posterior headache x2 weeks, nausea COMPARISON: None available. TECHNIQUE: Axial computed tomography images were obtained through the head/brain without intravenous contrast. Radiation dose: Total exam DLP = 796.51 mGy-cm. This CT exam was performed using one or more of the following dose reduction techniques: Automated exposure control, adjustment of the mA and/or kV according to patient size, and/or use of iterative reconstruction technique. FINDINGS: HEMORRHAGE: No intracranial hemorrhage. BRAIN: Normal torre-white matter differentiation and density are appreciated throughout the cerebrum and cerebellum with the brainstem appearing unremarkable as well. There is no mass effect. There is no suspicious extra-axial fluid collection and the midline brain anatomy appears diffusely unremarkable. VENTRICLES: Unremarkable. No hydrocephalus. CALVARIUM: Unremarkable. PARANASAL SINUSES: Unremarkable as visualized. No significant inflammatory changes. MASTOID AIR CELLS: Unremarkable as visualized. No inflammatory changes. OTHER FINDINGS: None. IMPRESSION: Unremarkable unenhanced head CT. 21:50 Patient was reassured about normal imaging yesterday. Instructed to schedule an appointment with a neurologist(referral provided) and to consult her PMD regarding the MRI. Patient requires no further treatment and is stable for discharge. Based on history, exam and diagnostic results, plan will be for outpatient follow up. Patient instructed to follow-up with pmd / referral provided / the clinic in 1- 2 days without fail. Advised to take medication as prescribed. Return to the e mergency room at any time for any new or worsening symptoms. Patient states she fully agrees with and understands discharge instructions. States that she agrees with the plan and disposition. Verbalized and repeated discharge instructions and plan. I have given the patient opportunity to ask any additional questions. Scribe Attestation: Documented by Ursula Lara, acting as a scribe for Marilin Pineda PA-C Provider Scribe Attestation: All medical record entries made by the Scribe were at my direction and personally dictated by me. I have reviewed the chart and agree that the record accurately reflects my personal performance of the history, physical exam, medical decision making, and the department course for this patient. I have also personally directed, reviewed, and agree with the discharge instructions and disposition. Disposition - Clinical Impression Clinical Impression: Headache - Patient ED Disposition Is Patient to be Admitted: No Counseled Patient/Family Regarding: Studies Performed, Diagnosis, Need For Followup, Rx Given - Disposition Referrals: Jason Chapman MD [Medical Doctor] - Jeff Mendoza MD [Staff Provider] - Disposition: Routine/Home Disposition Time: 21:50 Condition: STABLE Additional Instructions: La atencin mdica de emergencia que recibi hoy se dirigi a wanda sntomas agudos. Si le recetaron algn medicamento, llnelo y tmelo segn las indicaciones. Los sntomas pueden tardar varios orozco en resolverse. Regrese al Departamento de Emergencias si wanda sntomas empeoran, no mejoran o si tiene otros problemas. Comunquese con thornton mdico dentro de 2 orozco para antonio nueva evaluacin y anais un seguimiento o llame a too de los mdicos / clnicas a los que cardoza sido referido y que figuran en el formulario de Informacin de visita al paciente que se incluye en thornton paquete de garcia. Lleve todos los documentos que le entregaron al momento del garcia junto con todos los medicamentos que est tomando para thornton visita de seguimiento. Nuestro tratamiento no puede reemplazar la atencin mdica continua por parte de un proveedor de atencin primaria (PCP) fuera del departamento de emergencias. Prescriptions: Acetaminophen/Butalbital/Caf [Fioricet] 1 tab PO Q6 PRN #12 tab PRN Reason: Headache Instructions: Tension Headache, Headache, Adult, Migraine Headache (DC) Forms: [facility] (Mauritanian), [facility] (Hebrew) Print Language: KUWAITI - POA Present On Arrival: None
[2018-07-05] MEDS ORDERED: Apap-Butalbital-Caffeine 325-50-40mg Tab PO STA (21:34)
[2018-07-05] MEDS ORDERED: Apap-Butalbital-Caffeine 325-50-40mg Tab ONE (21:39)
[2018-07-05 22:09] VITALS: BP 138/68; PULSE 71; RESP 18
== END 2018-07-05 22:11 | disposition home or self-care (01) ==
LOC: H.ER 20:33
DX: R51 Headache (principal); I10 Essential (primary) hypertension
CPT/HCPCS: 81025; 96372; 99283; J1885

== ENCOUNTER 2018-10-06 09:20 | Emergency (ER) | payer OTHER ==
[2018-10-06 09:28] VITALS: BP 120/74; PULSE 76; RESP 17; TEMP 98.2; O2SAT 99
[2018-10-06 09:29] VITALS: BMI 26.4
[2018-10-06] MEDS ORDERED: DiphenhydrAMINE 50 mg/ml Inj IV STA (10:28)
[2018-10-06] MEDS ORDERED: Sodium Chloride 0.9% 1,000 ML IV STA (10:28)
[2018-10-06] MEDS ORDERED: DiphenhydrAMINE 50 mg/ml Inj ONE (10:46)
--- NOTE | 2018-10-06 11:06 | ED PDOC ---
HPI: Abdomen Time Seen by Provider: 10/06/18 10:08 Chief Complaint (Nursing): GI Problem Chief Complaint (Provider): Abd pain and rash History Per: Patient History/Exam Limitations: no limitations Onset/Duration Of Symptoms: Days (1 week) Current Symptoms Are (Timing): Still Present Additional Complaint(s): Pt. with epigastric pain constant, mild. Has nausea, non bloody vomit, and diarrhea. Also has a rash on upper chest, arms and ankles. Is itchy, not painful. No new soap, food, or anything different. No travel. Did not take any meds for it. No weakness, chest pain, dyspnea. No fever. No cough. No dysuria or lower abd pain. Past Medical History Reviewed: Nursing Documentation, Vital Signs Vital Signs: Last Vital Signs Temp 98.2 F 10/06/18 09:27 Pulse 76 10/06/18 09:27 Resp 17 10/06/18 09:27 BP 120/74 10/06/18 09:27 Pulse Ox 99 10/06/18 09:27 Primary Care Provider: Jeff Mendoza - Medical History PMH: Anemia, Arthritis, HTN Denies: Diabetes, Hepatitis, HIV, Chronic Kidney Disease, Seizures, Sexually Transmitted Disease - Surgical History Surgical History: Cholecystectomy, - Family History Family History: States: Unknown Family Hx - Home Medications Home Medications: Ambulatory Orders Medication Instructions Recorded amLODIPine [Norvasc] 2.5 mg PO DAILY 07/28/15 Ciprofloxacin [Cipro] 500 mg PO BID #14 tab 04/12/17 Dicyclomine [Bentyl] 20 mg PO QID PRN #10 tab 04/12/17 Multivitamin/Iron/Folic Acid 1 tab PO DAILY 04/12/17 [Centrum Complete Multivit Tab] Vitamin B Complex [Super B-50 1 cap PO DAILY 04/12/17 Complex] metroNIDAZOLE [Flagyl] 500 mg PO TID #21 tab 04/12/17 Ketorolac Tromethamine [Toradol] 10 mg PO BID #30 tab 06/29/17 Ibuprofen [Motrin] 600 mg PO TID 7 Days tab 12/20/17 Nitrofurantoin Macrocrystals 100 mg PO BID #10 cap 12/20/17 [Macrobid] Phenazopyridine HCl [Pyridium] 100 mg PO BID PRN 5 Days tab 12/20/17 Cephalexin [cephalexin] 500 mg PO TID #21 cap 01/31/18 Naproxen 500 mg PO BID PRN #20 tab 07/04/18 Acetaminophen/Butalbital/Caf 1 tab PO Q6 PRN #12 tab 07/05/18 [Fioricet] Famotidine [Pepcid] 20 mg PO DAILY PRN #6 tab 10/06/18 Ondansetron ODT [Zofran ODT] 4 mg PO TID PRN #8 odt 10/06/18 - Allergies Allergies/Adverse Reactions: Allergies Allergy/AdvReac Type Severity Reaction Status Date / Time No Known Allergies Allergy Verified 10/06/18 09:36 Review of Systems ROS Statement: Except As Marked, All Systems Reviewed And Found Negative Gastrointestinal: Positive for: Nausea, Vomiting, Abdominal Pain, Diarrhea Skin: Positive for: Rash Physical Exam - Reviewed Nursing Documentation Reviewed: Yes Vital Signs Reviewed: Yes - Physical Exam Appears: Positive for: Non-toxic, No Acute Distress Head Exam: Positive for: ATRAUMATIC, NORMAL INSPECTION, NORMOCEPHALIC Skin: Positive for: Rash (blanching mild raised patches of erythema that are nontender with no induration or fluctuance on upper chest, b/l lateral ankles; few on right and left hands, and 2 patches on left forearm. ) Eye Exam: Positive for: EOMI, Normal appearance, PERRL ENT: Positive for: Normal ENT Inspection Neck: Positive for: Normal, Painless ROM Cardiovascular/Chest: Positive for: Regular Rate, Rhythm, Chest Non Tender. Negative for: Edema Respiratory: Positive for: Normal Breath Sounds. Negative for: Accessory Muscle Use Gastrointestinal/Abdominal: Positive for: Soft, Tenderness (mild epigastric; no tenderness periumbilical, right or left lower abd.) Back: Positive for: Normal Inspection Extremity: Positive for: Normal ROM. Negative for: Tenderness, Pedal Edema, Calf Tenderness Neurological/Psych: Positive for: Awake, Alert, Normal Tone - Laboratory Results Result Diagrams: 10/06/18 11:25 10/06/18 11:25 Interpretation Of Abn Labs: 3.2 k - ECG ECG: Positive for: Interpreted By Me, Viewed By Me ECG Rhythm: Positive for: Normal QRS, Normal ST Segment, Sinus Rhythm O2 Sat by Pulse Oximetry: 99 Pulse Ox Interpretation: Normal - Progress ED Course And Treament: 1307: Stable. AAOx3. Tolerated PO. Fu with pcp. Glucose improved. Pain free. Disposition - Clinical Impression Clinical Impression: Abdominal pain, Hypokalemia, Vomiting and diarrhea - Patient ED Disposition Is Patient to be Admitted: No Counseled Patient/Family Regarding: Studies Performed, Diagnosis, Need For Followup, Rx Given - Disposition Referrals: [facility] [Outside] - 10/09/18 Disposition: Routine/Home Disposition Time: 13:08 Condition: STABLE Additional Instructions: Return if not better in 3 days. Prescriptions: Famotidine [Pepcid] 20 mg PO DAILY PRN #6 tab PRN Reason: Pain Ondansetron ODT [Zofran ODT] 4 mg PO TID PRN #8 odt PRN Reason: Nausea/Vomiting Instructions: Hypokalemia, Stomach Ache and Stomach Upset Forms: [facility] (Estonian) Print Language: SOUTH SUDANESE - POA Present On Arrival: None
[2018-10-06 11:37] LABS: BASO % 0.4 % (0.0-2.0); EOS % 0.4 % (0.0-4.0); HEMOGLOBIN 12.2 g/dL (12.0-16.0); LYMPH # 1.3 K/uL (1.0-4.3); LYMPH % 21.5 % (20.0-40.0); MEAN CORPUSCULAR HEMOGLOBIN 29.9 pg (27.0-31.0); MEAN CORPUSCULAR HGB CONC 33.6 g/dL (33.0-37.0); MEAN PLATELET VOLUME 9.9 fl (7.2-11.7); MONO # 0.5 K/uL (0.0-0.8); MONO % 7.6 % (0.0-10.0); NEUT # 4.2 K/uL (1.8-7.0); NEUT % 70.1 % (50.0-75.0); RBC 4.08 Mil/uL (3.80-5.20); RED CELL DISTRIBUTION WIDTH 14.1 % (11.5-14.5)
[2018-10-06 11:47] LABS: ALB/GLOB RATIO 1.3 (1.0-2.1); ALBUMIN 3.6 g/dL (3.5-5.0); ALT/SGPT 27 U/L (9-52); AST/SGOT 22 U/L (14-36); BLOOD UREA NITROGEN 18 mg/dl (7-17); CALCIUM 8.4 mg/dL (8.4-10.2); GFR NON-AFRICAN AMERICAN > 60; LIPASE 66 U/L (23-300)
[2018-10-06] MEDS ORDERED: Potassium Chloride 20 mEq ER Tab PO STA (12:28)
[2018-10-06] MEDS ORDERED: Potassium Chloride 20 mEq ER Tab PO ONE (12:43)
--- NOTE | 2018-10-06 16:40 | CARD ---
APPROVED REPORT Date of service: 10/06/2018 EKG Measurement Heart [id number] <Conclusion> Normal sinus rhythm Normal ECG
== END 2018-10-06 13:32 | disposition home or self-care (01) ==
LOC: H.ER 09:20
DX: R10.13 Epigastric pain (principal); E87.6 Hypokalemia; I10 Essential (primary) hypertension; Z79.899 Other long term (current) drug therapy; R11.10 Vomiting, unspecified; R19.7 Diarrhea, unspecified
CPT/HCPCS: 80053; 81025; 83690; 85025; 93005; 96374; 96375; 99284; J1200; J2930; J7030